=== PATIENT | female | born 1995 | race Caucasian/White ===

== ENCOUNTER 2017-10-26 14:34 | Emergency (ER) | END 2017-10-26 16:36 | disposition home or self-care (01) ==

== ENCOUNTER 2019-05-24 16:39 | Emergency (ER) | payer MEDICAID ==
[~2019-05-24] VITALS: Ht 167.6 cm; Wt 63.9 kg
[~2019-05-24 16:39] MED LIST: ACET500C5 PO; BACITUD TOP; CEPH-443 PO; FER325 PO; IBUP-1542 PO; NAPR-985 PO; PRENAT PO
[2019-05-24 16:54] VITALS: Ht 167.6 cm; Wt 63.9 kg
[2019-05-24] MEDS ORDERED: KETOROLAC 30 MG INJ IM STA (18:39)
[2019-05-24] MEDS ORDERED: CEFTRIAXONE 1 GM INJ IM ONE (19:30)
[2019-05-24] MEDS ORDERED: LIDOCAINE 1% (MDV) 20 ML INJ SC ONE (19:30)
[2019-05-24 20:06] VITALS: BP 110/65; PULSE 68; RESP 18
== END 2019-05-24 20:07 | disposition home or self-care (01) ==
LOC: FTE 16:39
DX: N12 Tubulo-interstitial nephritis, not specified as acute or chronic (principal)
CPT/HCPCS: 81003; 81025; 96372; J0696; J1885; Z7502; Z7610